=== PATIENT | female | born 2000 | race Caucasian/White ===

== ENCOUNTER 2022-07-03 10:25 | Emergency (ER) | payer MEDICAID, SELFPAY ==
[2022-07-03 11:02] VITALS: BP 117/75; PULSE 97; RESP 18; TEMP 36.9; O2SAT 100; BMI 34.4
--- NOTE | 2022-07-03 12:07 | ED.GENADULT ---
HPI - General Adult General Chief complaint: Back Injury/Pain Stated complaint: Back Pain Time Seen by Provider: 07/03/22 11:13 History of Present Illness HPI narrative: This 22-year-old female comes in reporting right sided upper back and neck pain radiating into her shoulder and upper arm. She states that she had a rotator cuff problem a year ago and went through physical therapy. She did not have any specific injury event at that time. She has not had any imaging to identify a rotator cuff problem. She comes in today stating that her pain is flared up in the past few days. 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 Related Data Previous Rx's Medication Instructions Recorded cyclobenzaprine 10 mg tablet 10 mg PO TID #15 tabs 07/03/22 ketorolac 10 mg tablet 10 mg PO Q8H 5 days #15 tabs 07/03/22 methylprednisolone 4 mg tablets in See Rx Instructions PO .COMPLEX 07/03/22 a dose pack (Medrol (Lawson)) #21 ea Allergies Allergy/AdvReac Type Severity Reaction Status Date / Time No Known Drug Allergies Allergy Verified 07/03/22 11:01 Review of Systems Status of ROS: Reports: 10 or more systems reviewed and unremarkable except as noted in History and below Narrative: Constitutional: No fevers, no weight gain or loss. Eyes: No discharge. No vision changes. HENT: No congestion, no sore throat, no ear pain. Cardiovascular: No chest pain, no palpitations. Respiratory: No shortness of breath, no wheezes, no cough. Gastrointestinal: No abdominal pain, no vomiting, no diarrhea. Genitourinary: No dysuria, no hematuria. Musculoskeletal: Normal range of motion. Pain in the left shoulder and upper back as described above. Skin: No rashes, no pruritis. Neurological: No dizziness, weakness, sensory change, speech change. Endo/Heme/Allergies: No bruising or bleeding. No polydipsia. Pysch: no suicidality, no anxiety, no insomnia. All other systems reviewed and are negative. PFSH PFSH Social History Smoking Status: Current every day smoker Do you use any of these nicotine containing products: E-Cigarettes Second hand tobacco smoke exposure: No How often do you have a drink containing alcohol: monthly or less How many standard drinks containing alcohol do you have on a typical day: 1 or 2 How often do you have six or more drinks on one occasion: Never AUDIT-C Alcohol total score: 1 Non-prescribed substance use: marijuana (any form) service: No Exam Narrative: Exam Narrative: Constitutional: Well-developed, well-nourished, no acute distress. HEENT: Normocephalic, atraumatic. Neck: Normal range of motion. Nontender. Supple. Heart: Regular. No murmurs. Normal rate. Intact distal pulses. Lungs: Clear to auscultation. No chest discomfort. No wheezes, rhonchi, or rales. Abdomen: Normal bowel sounds. Nontender. No rebound tenderness. Genitalia: Deferred. Back: No midline tenderness. Normal range of motion. Extremities: Normal range of motion. No injury. Diffuse pain in the right shoulder and upper back musculature radiating down her right upper arm. She has full range of motion of her arm. There is no sign of swelling or deformity. Skin: Intact. No rash. Warm. No erythema or pallor. Neurologic: No altered sensation. No weakness. Alert and oriented. Spurling's test is negative. Psychiatric: No suicidality. No anxiety or depression. No insomnia. Nursing notes and vitals signs are reviewed. Const: Vital Signs, click to edit/add: Vital Signs - 24 hr 07/03/22 11:02 Temperature 98.4 F Pulse Rate [Femora l] 97 Respiratory Rate 18 Blood Pressure [Ri ght Upper Arm] 117/75 Pulse Oximetry 100 Oxygen Delivery Me thod Room Air Course Vital Signs Vital signs: Initial Vital Signs Temperature 98.4 F 07/03/22 11:02 Temperature Source Temporal Artery Scan 07/03/22 11:02 Pulse Rate 97 07/03/22 11:02 Pulse Rhythm 07/03/22 11:02 Respiratory Rate 18 07/03/22 11:02 Blood Pressure 117/75 07/03/22 11:02 Blood Pressure Mean 89 07/03/22 11:02 Blood Pressure Position Sitting 07/03/22 11:02 Pulse Oximetry 100 07/03/22 11:02 Oxygen Delivery Method 07/03/22 11:02 Vital Signs Temperature 98.4 F 07/03/22 11:02 Pulse Rate 97 07/03/22 11:02 Respiratory Rate 18 07/03/22 11:02 Blood Pressure 117/75 07/03/22 11:02 Pulse Oximetry 100 07/03/22 11:02 Oxygen Delivery Method 07/03/22 11:02 Temperature 98.4 F 07/03/22 11:02 Pulse Rate 97 07/03/22 11:02 Respiratory Rate 18 07/03/22 11:02 Blood Pressure 117/75 07/03/22 11:02 Pulse Oximetry 100 07/03/22 11:02 Oxygen Delivery Method 07/03/22 11:02 Medical Decision Making MDM Narrative Medical decision making narrative: This patient comes in with pain in her right shoulder and right upper back. She did not have any specific injury event but does do lots of work with her hands and arms. Imaging studies are not indicated at this time. Her symptoms are likely related to an overuse injury. Spurling's test is negative. I stated that she may need to modify her activity and resume physical therapy if needed. She received a prescription for Medrol Dosepak, Toradol, and Flexeril. Discharge Plan Discharge Clinical Impression: Acute pain of right shoulder Patient Disposition: Home, Self-Care Additional Instructions: Take medications as needed and indicated. Follow up with MD or return if worsening. Prescriptions: New cyclobenzaprine 10 mg tablet 10 mg PO TID Qty: 15 0RF ketorolac 10 mg tablet 10 mg PO Q8H 5 Days Qty: 15 0RF methylprednisolone [Medrol ([facility]son)] 4 mg tablets,dose pack See Rx Instructions .ROUTE .COMPLEX Qty: 21 0RF Rx Instructions: orally per package directions Stand Alone Forms: [facility] Info Instructions
== END 2022-07-03 12:57 | disposition home or self-care (01) ==
LOC: ED 12:21
PROVIDERS: Emergency Provider Emergency Medicine Emergency Medical Services
DX: M25.511 Pain in right shoulder (principal)
CPT/HCPCS: 99283; 99284